=== PATIENT | female | born 1990 | race Caucasian/White ===

== ENCOUNTER 2020-02-10 11:00 | Emergency (ER) | payer SELFPAY ==
[~2020-02-10] VITALS: Ht 160 cm; Wt 65.8 kg
[2020-02-10 11:14] VITALS: BP 147/79
--- NOTE | 2020-02-10 14:30 | NUR ---
CALLED OUT NAME, NO RESPONSE
--- NOTE | 2020-02-10 14:40 | NUR ---
CALLED OUT NAME, NO RESPONSE
--- NOTE | 2020-02-10 14:50 | NUR ---
CALLED OUT NAME, NO RESPONSE
--- NOTE | 2020-02-10 14:52 | NUR ---
PATIENT LEFT WITHOUT BEING SEEN BY DR. BERNAL. NO FURTHER CARE PROVIDED FOR PATIENT.
== END 2020-02-10 14:30 | disposition left against medical advice (07) ==
LOC: MED 11:00
DX: R05 Cough (principal); Z53.21 Procedure and treatment not carried out due to patient leaving prior to being seen by health care provider